=== PATIENT | male | born 1970 | race Caucasian/White ===

== ENCOUNTER 2017-05-31 15:45 | Inpatient (IN) | payer OTHER ==
[~2017-05-31] VITALS: Ht 193 cm; Wt 145.9 kg
[2017-05-31] MEDS: fentaNYL-PF 50 mCg/mL 2 mL Inj IVPUSH ONE ×4 (15:40→15:58)
[~2017-05-31 15:45] MED LIST: HYDROmorphone 1 mg/mL Inj ONE; MetoCLOpramide 5 mg/mL 2 mL Inj ONE; Ondansetron 2 mg/mL 2 mL Inj ONE; Propofol 10,000 mCg/mL 20 mL Inj ONE; fentaNYL-PF 50 mCg/mL 2 mL Inj ONE
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
[2017-05-31] MEDS ORDERED: fentaNYL-PF 50 mCg/mL 2 mL Inj ONE (15:48)
[2017-05-31] MEDS ORDERED: 0.9% Sodium Chloride 1,000 ML IV ONE (15:50)
[2017-05-31] MEDS ORDERED: Ondansetron 2 mg/mL 2 mL Inj IVPUSH PRN ×5 (15:50→21:40)
[2017-05-31] MEDS ORDERED: HYDROmorphone 1 mg/mL Inj IVPUSH PRN ×3 (15:50→21:40)
[2017-05-31 16:18] LABS: BASOPHILS % (AUTO) 0.2 % (0-3); EOSINOPHILS % (AUTO) 1.1 % (0-5); MONOCYTES % (AUTO) 6.9 % (4-12); Mean Corpuscular Hemoglobin 29.6 pg (27.0-35.0); Mean Corpuscular Volume 87.1 fL (81-100); NEUTROPHILS % (AUTO) 66.7 % (40-74); Platelet Count 278 bil/L (150-400)
--- NOTE | 2017-05-31 16:32 | DRSVH ---
PROCEDURE: X-RAY RIGHT FEMUR, TWO VIEWS ([id number]) INDICATIONS: trauma TECHNIQUE: 2 views of the femur were acquired. COMPARISON: None. FINDINGS: Bones: No fractures or dislocations. No suspicious bony lesions. Soft tissues: No suspicious soft tissue calcifications or masses. IMPRESSION: No acute fracture. No osseous lesion. If symptoms and/or clinical suspicion for patholog y persist, further assessment with repeat, or advanced imaging (e.g., CT, MRI, or bone scan) may be h elpful for further assessment. Dictated by: Malina Adrian M.D. on 05/31/2017 at 16:29 Approved by: Malina Adrian M.D. on 05/31/2017 at 16:30
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
--- NOTE | 2017-05-31 16:33 | DRSVH ---
PROCEDURE: X-RAY RIGHT FOOT, TWO VIEWS ([id number]) INDICATIONS: trauma TECHNIQUE: 2 views of the foot were acquired. COMPARISON: None. FINDINGS: Bones: No fractures or dislocations. No suspicious bony lesions. Soft tissues: No tibiotalar joint effusion. Achilles tendon appears normal. IMPRESSION: No acute radiographic findings. If acute pain persists, repeat study is recommended in 5 -7 days to exclude occult fracture at the time of the study. Dictated by: Ruth Eric M.D. on 05/31/2017 at 15:31 Approved by: Ruth Eric M.D. on 05/31/2017 at 15:31
[2017-05-31 16:36] LABS: INR 0.95 ratio
[2017-05-31] MEDS ORDERED: HYDROmorphone 1 mg/mL Inj IVPUSH ONE (17:00)
[2017-05-31] MEDS ORDERED: Alum-Mag Hydrox-Simeth 30 mL Suspension PO PRN ×2 (17:25→17:45)
[2017-05-31] MEDS ORDERED: Polyethylene Glycol (PEG) 17 Gm Powder PO PRN (17:45)
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
[2017-05-31] MEDS ORDERED: Lactated Ringer's 500 ML IV PRN (19:40)
[2017-05-31] MEDS ORDERED: fentaNYL-PF 50 mCg/mL 2 mL Inj IVPUSH PRN (19:40)
[2017-05-31] MEDS ORDERED: Lactated Ringer's 1,000 ML IV SCH (19:40)
[2017-05-31] MEDS ORDERED: MetoCLOpramide 5 mg/mL 2 mL Inj IVPUSH PRN (19:40)
[2017-05-31] MEDS ORDERED: Phenylephrine 10,000 mCg/mL Inj IVPUSH PRN (19:40)
[2017-05-31] MEDS ORDERED: Dexamethasone 4 mg/mL Inj IVPUSH PRN (19:40)
[2017-05-31] MEDS ORDERED: EPHEDrine Sulfate 50 mg/mL Inj IVPUSH PRN (19:40)
--- NOTE | 2017-05-31 19:40 | PCM.HPANE ---
Patient Data Surgeon Admitting Provider: Attending Provider:Samm Primary Care Physician:Anthony Other Provider: Reason for Visit Right Tib-Fib Fracture Ht/WT & BMI Body Mass Index Allergies Coded Allergies: No Known Allergies (Verified Allergy, Unknown, 05/31/17) Past Anesthesia History Anesthesia History: Denies:: Abnormal Airway, Anesthesia Reactions, Difficult Intubation, Fam Anesthesia Reaction, Fam Malignant Hypertherm, Malignant Hyperthermia Medications No Active Prescriptions or Reported Meds History History of ENT Problems?: No HEENT History: Denies:: Abnormal Airway Cataracts Difficult Intubation Dysphagia Glaucoma Hearing Problem Sinus Problem TMJ Denture Type: None Teeth Condition: Within Normal Limits Hx of Heart Problems?: No Cardiovascular History: Denies:: AICD Abdominal Aortic Aneurism Atrial Fibrillation Cardiac Surgery Chest Pain Congestive Heart Failure Coronary Artery Disease Edema Heart Murmur Hypertension Irregular Heartbeat Pacemaker Peripheral Vascular Rheumatic Fever Thrombophlebitis Valvular Heart Disease Hx of Respiratory Problem?: No Respiratory History: Denies:: Asthma COPD Chest Surgery Cough Dyspnea Emphysema Hemoptysis Oxygen Administration Pneumonia Pulmonary Embolism Tuberculosis Use of C-PAP Machine Use of Inhalers / NEBS Hx Neurologic Problems?: No Hx of GI Problems?: No Hx of Problems?: No Hx Musculoskeletal Problems?: No Hx of Psycho/Social Problems?: No Hx Surgeries?: Yes Hx Alcohol Use: NoHx Substance Use: No Smoking Status: Former Smoker (quit 15 years ago) Stop/Bang Risk Assessment Category Category 1A: Patient has history of documented sleep apnea, and HAS NOT received any narcotic, sedative or anesthesia administration during this stay. Category 1B: Patient has history of documented sleep apnea, and HAS received any narcotic , sedative or anesthesia administration during this stay Category 2: Patient has SUSPECTED Obstructive Sleep Apnea, and HAS received any narcotic , sedative or anesthesia administration during this stay. Category 3: Patient has SUSPECTED Obstructive Sleep Apnea and HAS NOT received narcotic, sedative or anesthesia administration during this stay. Category 4: Outpatient in Procedural Areas with known sleep apnea or who screen positive for High Risk via the STOP/BANG questionnaire. Exam Exam General Appearance: Alert, Oriented X3, Cooperative, No Acute Distress HEENT/AIRWAY: MP 2 Lungs: Clear to Auscultation Heart: Exam Unremarkable Meds/Labs/Diagnostics Admission Meds Current Medications Sodium Chloride (Normal Saline) 1,000 ml @ 0 mls/hr Q0M ONCE IV Last administered on 05/31/17t 16:24; Start 05/31/17 at 15:50; Stop 05/31/17 at 15:54 ; Status DC Fentanyl Citrate (Sublimaze Inj) 50 mcg ONCE ONCE IVPUSH Last administered on 05/31/17 15:51; Start 05/31/17 at 15:40; Stop 05/31/17 at 15:59; Status DC Fentanyl Citrate (Sublimaze Inj) 50 mcg ONCE ONCE IVPUSH Last administered on 05/31/17 15:58; Start 05/31/17 at 15:45; Stop 05/31/17 at 15:59; Status DC Hydromorphone HCl (Dilaudid Inj) 1 mg ONCE ONCE IVPUSH Last administered on 17:04; Start 05/31/17 at 17:00; Stop 05/31/17 at 18:11; Status DC Labs Test 05/31/17 16:13 05/31/17 16:14 05/31/17 16:40 White Blood Count 12.3th/mm3 (3.8-10.1) Red Blood Count 4.87mil/mm3 (4.40-5.80) Mean Corpuscular Volume 87.1fL (81-100) Mean Corpuscular Hemoglobin 29.6pg (27.0-35.0) Mean Corpuscular Hemoglobin Concent 34.0% (32.0-37.0) Red Cell Distribution Width 13.3% (12.3-15.4) Platelet Count 278bil/L (150-400) Neutrophils (%) (Auto) 66.7% (40-74) Lymphocytes (%) (Auto) 24.9% (14-46) Monocytes (%) (Auto) 6.9% (4-12) Eosinophils (%) (Auto) 1.1% (0-5) Basophils (%) (Auto) 0.2% (0-3) Prothrombin Time 10.1sec (8.1-12.5) Prothromb Time International Ratio 0.95ratio Activated Partial Thromboplast Time 24.6sec (22.8-33.0) Sodium Level 139mEq/L (134-144) Potassium Level 4.1mEq/L (3.5-5.2) Chloride Level 103mEq/L (97-108) Carbon Dioxide Level 20mmol/L (18-29) Blood Urea Nitrogen 30mg/dL (6-24) Creatinine 0.76mg/dL (0.76-1.27) Estimat Glomerular Filtration Rate 117mL/min (>59) Glucose Level 136mg/dL (60-99) Calcium Level 8.8mg/dL (8.5-10.1) Total Bilirubin 0.2mg/dL (0.0-1.2) Aspartate Amino Transf (AST/SGOT) 29U/L (0-50) Alanine Aminotransferase (ALT/SGPT) 34U/L (0-44) Alkaline Phosphatase 63U/L (25-150) Total Protein 6.8g/dL (6.4-8.4) Albumin 4.0g/dL (3.4-5.0) Alcohols < 10mg/dL (0-10) Hemoglobin 14.1g/dL (13.8-17.2) Hematocrit 41.6% (41.0-50.0) Plan Impression Patient chart reviewed, patient interviewed and anesthestic plan with risks, benefits, and alternatives discussed, and informed consent obtained. ASA Physical Status: ASA2 Mod Systemic Disease Anesthetic Plan: GA Bene/Risks/Altern/Consents: Yes HP Complete Prior to Induction: Yes Elvis Vaz MD May 31, 2017 18:45
[2017-05-31] MEDS ORDERED: Ropivacaine-PF 0.5% 30 mL Inj INFILTRATE ONE (20:02)
[2017-05-31] MEDS ORDERED: Lactated Ringer's 1,000 ML IV ONE ×2 (20:03→21:38)
[2017-05-31 21:36] VITALS: BP 150/99; PULSE 75; RESP 12; O2SAT 100
[2017-05-31] MEDS ORDERED: Acetaminophen IV 1,000 MG in IV Premix 1 EACH IV ONE (21:40)
[2017-05-31] MEDS ORDERED: diphenhydrAMINE 25 mg Capsule PO PRN (21:40)
[2017-05-31] MEDS ORDERED: Magnesium Hydroxide 10 mL Oral Concentration PO PRN (21:40)
[2017-05-31] MEDS ORDERED: hydrOXYzine Pamoate 25 mg Capsule PO PRN (21:40)
[2017-05-31 21:45] VITALS: BP 142/92; PULSE 70; RESP 14; O2SAT 100
[2017-05-31 21:50] VITALS: BP 132/84; PULSE 69; RESP 15; O2SAT 100
[2017-05-31 21:55] VITALS: BP 146/90; PULSE 78; RESP 22; O2SAT 94
[2017-05-31 22:24] VITALS: BP 128/85; PULSE 60; RESP 16; O2SAT 92
[2017-05-31] MEDS: 0.9% Sodium Chloride 1,000 ML IV SCH (23:10)
--- NOTE | 2017-05-31 23:57 | PCM.ANEP1 ---
Post Anesthesia PACU Phase 1 Assessment Vital Signs Vital Signs Date Time Temp Pulse Resp B/P Pulse Ox O2 Delivery O2 Flow Rate FiO2 05/31/17 22:24 36.6 60 16 128/85 92 Room Air 05/31/17 21:55 78 22 146/90 94 Room Air 05/31/17 21:50 69 15 132/84 100 Simple Mask 8 05/31/17 21:45 70 14 142/92 100 Simple Mask 8 05/31/17 21:36 35.8 75 12 150/99 100 Simple Mask 8 Anesthetic Administered: GA Level of Alertness: Sleepy, easy to arouse SHIPMAN's with Equal Strength: Yes Pain: Yes Pain Scale Score: 10 Nausea or Vomiting: No CV Function & Hydration Stable: Yes Airway Device: Oxygen Delivery: Simple Mask Lungs: Clear to Auscultation Dermatome Level: Full Sensation PACU Phase 2 Assessment Complications: No Patient Instructions Provided: N/A Elvis Vaz MD May 31, 2017 23:57
[2017-06-01] MEDS: Sodium Chloride LOK Flush 10 mL Syringe IV SCH ×2 (00:17→08:00)
--- NOTE | 2017-06-01 00:46 | NUR ---
Admit Patient arrived on unit at 2215, drowsy but easily roused. Oriented to room by aide, A&O able to make needs known. c/o right leg throbbing and requested pain medication. Advancing diet as tolerated but not yet able to take in po's given IV Tylenol. Tolerated well. No known PMH, states no allergies.
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
[2017-06-01] MEDS: CeFAZolin Inj 3 GM in Dextrose 5% 50 ML IV SCH ×2 (03:44→12:38)
[2017-06-01 03:45] VITALS: BP 119/71; PULSE 55; RESP 20; O2SAT 98
[2017-06-01] MEDS: 0.9% Sodium Chloride 1,000 ML IV SCH ×2 (05:37→13:37)
[2017-06-01 06:13] LABS: BASOPHILS % (AUTO) 0.2 % (0-3); EOSINOPHILS % (AUTO) 0.5 % (0-5); MONOCYTES % (AUTO) 11.2 % (4-12); Mean Corpuscular Hemoglobin 29.6 pg (27.0-35.0); Mean Corpuscular Volume 87.6 fL (81-100); NEUTROPHILS % (AUTO) 73.1 % (40-74); Platelet Count 242 bil/L (150-400)
--- NOTE | 2017-06-01 07:24 | CONS ---
[address] [address] CONSULTATION REPORT PATIENT: ADELINA ORLANDO : 1970 MR#: [id number] ADMIT: 05/31/2017 JOB ID: [id number] DATE OF SERVICE: 05/31/2017 CHIEF COMPLAINT: Right lower leg injury. HISTORY OF PRESENT ILLNESS: The patient is a 46-year-old male who works in water [employer] and had a van which got stuck on a hill while mitzi a trailer and when he stepped from the van, the van slid backward down the hill, either running him over knocking him and injuring his right lower leg. He was unable to ambulate after the fall. He denies loss of consciousness or other injuries. He had severe acute pain in the right leg. This feels a bit better after being splinted, but describes a dull throbbing. PAST MEDICAL HISTORY: Significant for none stated. PAST SURGICAL HISTORY: Tympanostomy as a child and no problems with this. ALLERGIES: No known drug allergies. MEDICATIONS: None. SOCIAL HISTORY: The patient denies tobacco or alcohol use. Denies illicit drug use. SOCIAL HISTORY: The patient is seen with his present. PHYSICAL EXAMINATION: His blood pressure 132/111, pulse rate 64, respirations 22, O2 sat 100%. General: Alert and oriented x3. No acute distress. Denies tenderness to palpation over the bilateral clavicles. Does have some soreness in his left upper arm, but has good range of motion and strength. His right tibia has pain and tenderness over the mid shaft. He is able to move his toes and he does have some numbness in his toes, but his feet are warm, pink and well perfused with capillary refill less than 3 seconds. Dorsalis pedis pulse +2. He is splinted in a long leg posterior splint. X-rays demonstrate a right mid shaft tib-fib fracture with displacement. ASSESSMENT: Right mid shaft tib-fib fracture. PLAN: We discussed treatment options for this and I recommended intramedullary nailing. We discussed the risks, benefits, and possible complications of surgery. All questions were answered and he wished to proceed. We also discussed the phenomenon of compartment syndrome and the fact that if this arises we would need to do a decompressive fasciotomy, but I do not feel that he has any symptoms of compartment syndrome at this time. Will plan for surgery later this evening once he has been n.p.o. for eight hours.
[2017-06-01] MEDS: HYDROcodone-APAP 7.5-325 mg Tablet PO PRN ×2 (07:57→12:01)
[2017-06-01] MEDS ORDERED: Senna-Docusate 8.6-50 mg Tablet PO SCH (08:30)
--- NOTE | 2017-06-01 09:07 | PCM.PNMED ---
Subjective Date of Service Jun 01, 2017 Subjective Patient seen and examined. Pain well controlled. Tolerating orals. Vitals stable. Exam Vital Signs Vital Sign - Last Date Time Temp Pulse Resp B/P Pulse Ox O2 Delivery O2 Flow Rate FiO2 06/01/17 03:45 36.4 55 20 119/71 98 Room Air 05/31/17 21:50 8 Intake and Output 05/31/17 05/31/17 06/01/17 Cumulative From/Thru 15:00 23:00 07:00 05/31/17 20:00 - 06/01/17 05:47 Intake Total 1575 ml 1076 ml 2651 ml Output Total 825 ml 1500 ml 2325 ml Balance 750 ml -424 ml 326 ml Intake Oral 400 ml 400 ml IV Total 1575 ml 676 ml 2251 ml Output Urine Total 625 ml 1500 ml 2125 ml Estimated Blood Loss 200 ml 200 ml Exam Constitutional: Middle-aged male in no acute distress Head: Normocephalic atraumatic Eyes: PERRLA DC EOMI Chest: Clear to auscultation Cor: Technically bradycardic at rate of 53 but will go up to 75 on telemetry and sinus rhythm, S1, S2 without murmur Abdomen: Soft nontender bowel sounds present Extremities: Left reveals leg without any abnormalities superficial abrasion of his left forearm area. Right leg is currently splinted Lab and Diagnostics Result Diagram: 06/01/17 0549 06/01/17 0549 12-lead ECG EKG is sinus at a rate of 53 with NM interval of 205 and QTC of 419 Assessment & Plan #Right tib-fib fracture, acute, present on admission -Had open reduction yesterday in OR - tolerated procedure well, pain control - PT # Sinus bradycardia, present on admission -Do not see anything pathological regarding this and see no contraindication to surgery -We will monitor on telemetry #DVT prophylaxis -Defer to orthopedic surgery #CODE STATUS -Full code VTE Prophylaxis: Other (patient going to OR later tonight so will hold any subcutaneous anticoagulation) Resuscitation Status: CPR: Attempt Resuscitation Time spent 35 mins Thanh Vaz MD Jun 01, 2017 09:07
[2017-06-01 09:21] VITALS: BP 138/84; PULSE 56; RESP 18; O2SAT 97
--- NOTE | 2017-06-01 09:23 | PCM.PNORTH ---
Subjective Date of Service: Jun 01, 2017 Visit Information: Reason for Visit Right Tib-Fib Fracture Surgery/Surgery Date Post-Op Day # Date of Admission: May 31, 2017 at 22:25 Hospital Day # Subjective Status post day #1 right tibial nail from right tibia fibula fracture. Patient states he is definitely a little achy in the knee and ankle but feels like he is doing pretty well. He would like to go home today and understands he may be a little sore for the next day or 2. He has used crutches in the past and is comfortable using them. Postop General: No Complaints, No Shortness of Breath, No Chest Pain Objective Exam Objective Patient is alert and oriented 3. Answering questions appropriately. Patient is sitting up in the bed and not in acute distress today. Dressing is clean dry and intact. Calf is soft and nontender. Sensation and pulses intact, patient able to wiggle toes. Toes are a little cold, this is the case bilaterally and patient states this is normal for him. Vital Signs and I/O Vital Sign - Last Date Time Temp Pulse Resp B/P Pulse Ox O2 Delivery O2 Flow Rate FiO2 06/01/17 03:45 36.4 55 20 119/71 98 Room Air 05/31/17 21:50 8 Intake and Output 05/31/17 05/31/17 06/01/17 Cumulative From/Thru 15:00 23:00 07:00 05/31/17 20:00 - 06/01/17 05:47 Intake Total 1575 ml 1076 ml 2651 ml Output Total 825 ml 1500 ml 2325 ml Balance 750 ml -424 ml 326 ml Intake Oral 400 ml 400 ml IV Total 1575 ml 676 ml 2251 ml Output Urine Total 625 ml 1500 ml 2125 ml Estimated Blood Loss 200 ml 200 ml Lab & Micro Results Laboratory Tests Test 05/31/17 16:13 05/31/17 16:14 05/31/17 16:40 06/01/17 05:49 White Blood Count 12.3th/mm3 (3.8-10.1) 13.0th/mm3 (3.8-10.1) Red Blood Count 4.87mil/mm3 (4.40-5.80) 4.43mil/mm3 (4.40-5.80) Hemoglobin 14.4g/dL (13.8-17.2) 14.1g/dL (13.8-17.2) 13.1g/dL (13.8-17.2) Hematocrit 42.4% (41.0-50.0) 41.6% (41.0-50.0) 38.8% (41.0-50.0) Mean Corpuscular Volume 87.1fL (81-100) 87.6fL (81-100) Mean Corpuscular Hemoglobin 29.6pg (27.0-35.0) 29.6pg (27.0-35.0) Mean Corpuscular Hemoglobin Concent 34.0% (32.0-37.0) 33.8% (32.0-37.0) Red Cell Distribution Width 13.3% (12.3-15.4) 13.4% (12.3-15.4) Platelet Count 278bil/L (150-400) 242bil/L (150-400) Neutrophils (%) (Auto) 66.7% (40-74) 73.1% (40-74) Lymphocytes (%) (Auto) 24.9% (14-46) 14.8% (14-46) Monocytes (%) (Auto) 6.9% (4-12) 11.2% (4-12) Eosinophils (%) (Auto) 1.1% (0-5) 0.5% (0-5) Basophils (%) (Auto) 0.2% (0-3) 0.2% (0-3) Prothrombin Time 10.1sec (8.1-12.5) Prothromb Time International Ratio 0.95ratio Activated Partial Thromboplast Time 24.6sec (22.8-33.0) Sodium Level 139mEq/L (134-144) 139mEq/L (134-144) Potassium Level 4.1mEq/L (3.5-5.2) 3.9mEq/L (3.5-5.2) Chloride Level 103mEq/L (97-108) 104mEq/L (97-108) Carbon Dioxide Level 20mmol/L (18-29) 22mmol/L (18-29) Blood Urea Nitrogen 30mg/dL (6-24) 20mg/dL (6-24) Creatinine 0.76mg/dL (0.76-1.27) 0.61mg/dL (0.76-1.27) Estimat Glomerular Filtration Rate 117mL/min (>59) 151mL/min (>59) Glucose Level 136mg/dL (60-99) 119mg/dL (60-99) Calcium Level 8.8mg/dL (8.5-10.1) 8.4mg/dL (8.5-10.1) Total Bilirubin 0.2mg/dL (0.0-1.2) 0.3mg/dL (0.0-1.2) Aspartate Amino Transf (AST/SGOT) 29U/L (0-50) 31U/L (0-50) Alanine Aminotransferase (ALT/SGPT) 34U/L (0-44) 31U/L (0-44) Alkaline Phosphatase 63U/L (25-150) 55U/L (25-150) Total Protein 6.8g/dL (6.4-8.4) 5.8g/dL (6.4-8.4) Albumin 4.0g/dL (3.4-5.0) 3.7g/dL (3.4-5.0) Alcohols < 10mg/dL (0-10) Hold Dailey Top Tube Received (Received) Result Diagram: 06/01/17 0549 06/01/17 0549 Assessment & Plan Impression Status post day #1 right tibial nail. Patient states he is feeling pretty good. Would definitely like to go home today. Problems: Plan Patient will work this morning with physical therapy to be cleared for discharge to home. Patient will be utilizing crutches and he will be given a prescription for crutches to use at home. Patient will utilize aspirin 325 mg enteric-coated and take 1 twice a day for 6 weeks for DVT prophylaxis. No weightbearing on the right leg, patient will use crutches and he may only place his toe down for balance but no weight on this foot. We will send you home with [place] 5/325 mg tablets to take 1-2 tablets every 4 hours if needed for pain. You may take Tylenol instead but I would only like you to take one or the other not both together. We will have the patient follow-up in 2 weeks to have a wound check, any sutures removed, and to be placed into a cast or walking boot as well as x-rays at that time. VTE Prophylaxis: Other (patient going to OR later tonight so will hold any subcutaneous anticoagulation) Resuscitation Status: CPR: Attempt Resuscitation Lester Sethi PA-C Jun 01, 2017 09:23
--- NOTE | 2017-06-01 09:26 | PCM.DIORTH ---
Ortho Discharge Instruction Date of Service: Jun 01, 2017 Dates of Hospitalization Date of Hospital Admission May 31, 2017 at 22:25 Providers Admitting Physician: Ernestine Woodward MD Primary Care Physician: Anthony Attending Physician: Thanh Vaz MD Diet Discharge Diet: No restrictions Activity Discharge Activity-General: Try not to overdue Right Lower Extremity: Toe-Touch Weight Bearing Discharge Assist Device: Crutches Additional Instructions Discharge Instructions Patient will work this morning with physical therapy to be cleared for discharge to home. Patient will be utilizing crutches and he will be given a prescription for crutches to use at home. Patient will utilize aspirin 325 mg enteric-coated and take 1 twice a day for 6 weeks for DVT prophylaxis. No weightbearing on the right leg, patient will use crutches and he may only place his toe down for balance but no weight on this foot. We will send you home with [place] 5/325 mg tablets to take 1-2 tablets every 4 hours if needed for pain. You may take Tylenol instead but I would only like you to take one or the other not both together. We will have the patient follow-up in 2 weeks to have a wound check, any sutures removed, and to be placed into a cast or walking boot as well as x-rays at that time. Lester Sethi PA-C Jun 01, 2017 09:26
--- NOTE | 2017-06-01 09:29 | PCM.DC.ORT ---
Discharge Summary Date of Service: Jun 01, 2017 Date of Hospital Admission: May 31, 2017 at 22:25 Date of Surgery: May 31, 2017 Date of Discharge: Jun 01, 2017 Reason for Hospitalization: Right tibia and fibula fractures Procedures Performed: Right tibial nailing. Hospital Course: Patient presented to [facility] surgical suite for the procedure of right tibial nailing by Dr. Albert Kessler on 05/31/2017. Patient was prepped for surgery and the procedure was performed successfully, patient was discharged to PACU under stable condition, tolerated the procedure well. Once stabilized in PACU and pain well controlled, patient was admitted to the hospital floor for observation, pain control, and progression with physical therapy. The first day the patient was able to resume a regular diet, void on their own, not having any problems with nausea or vomiting. The patient did not have any adverse falls, reactions, or events were all in the hospital. The patient began working with physical therapy on day one then progressed quite well with reasonable pain control. On day one the patient was able to ambulate safely on their own, and pain was controlled sufficiently to be discharged to home with crutches. We will utilize aspirin 325 mg by mouth twice a day for 6 weeks for DVT prophylaxis. The patient was discharged to home under stable condition with plan to follow- up with patient at 2 weeks for a postoperative appointment. Diagnosis at Time of Discharge Status post right tibial nailing Problems: Orthopedic Follow up Plan: In Two Weeks in my clinic Discharge Instructions: Patient will work this morning with physical therapy to be cleared for discharge to home. Patient will be utilizing crutches and he will be given a prescription for crutches to use at home. Patient will utilize aspirin 325 mg enteric-coated and take 1 twice a day for 6 weeks for DVT prophylaxis. No weightbearing on the right leg, patient will use crutches and he may only place his toe down for balance but no weight on this foot. We will send you home with [place] 5/325 mg tablets to take 1-2 tablets every 4 hours if needed for pain. You may take Tylenol instead but I would only like you to take one or the other not both together. We will have the patient follow-up in 2 weeks to have a wound check, any sutures removed, and to be placed into a cast or walking boot as well as x-rays at that time. No Active Prescriptions or Reported Meds Lester Sethi PA-C Jun 01, 2017 09:29
--- NOTE | 2017-06-01 11:31 | NUR ---
Social Work: Initial Assessment/Discharge/Multidisciplinary Rounds D: EMR reviewed. Please see Initial Assessment linked to this note for more information. Pt is a 46 year old male admitted [place] for right tib-fib fracture per H&P. Pt's insurance is [employer]. Pt has no other insurance coverage. Pt has no PCP. Pt discussed in multidisciplinary rounds, pt to discharge today. PT evaluated and cleared pt for home with crutches. SW met with pt and at bedside to conduct initial assessment. Pt was alert and oriented x3. SW explained role and wrote phone number on white board. SW provided [facility] Discharge Planning Checklist and encouraged pt to contact SW for any discharge planning questions. Pt lives at home with his spouse in [place]. Pt is independent with all ADLs at baseline. Pt uses no DME at baseline and will need crutches for use at discharge. Discussed obtaining crutches, pt's is going to go purchase some today prior to d/c. Pt drives. Pt has no HH or SNF history. Pt has no LTC or VA benefits. Pt has no DPOA on file, declined DPOA information. SW also discussed the [place] [employer] to find an insurance plan that meets pt's needs, provided information and director patient financial services application for the hospital to pt at bedside. No additional d/c needs. Pt to d/c home with spouse to transport via POV. A: Pt who is independent at baseline and has the capacity for self-care. P: Pt anticipated to discharge home with spouse to transport via POV. No additional d/c needs. ROSA Marques Addendum: 06/01/17 at 1135 by MADELINE WEBB Amended: Links added.
--- NOTE | 2017-06-01 14:49 | NUR ---
Toe Tingling, Discharge Upon morning assessment patient reports some tingling to the right toes and pain to the right knee. Patient states that the tingling sensation comes and goes. PA aware, no new orders received. Patient states that this tingling sensation decreased as shift progressed. Orders for discharge were received. The patient was made aware of the plan to discharge and was agreeable to go. The patient was given information and teaching on his diagnosis and treatment, signs and symptoms to be aware of, follow up instructions, wound and dressing care, crutch use teaching as well as scripts for new medications with teaching and physical handouts on these medications. The patient signified understanding of this information, verified using the teach back method. The patient's asymptomatic IV was then removed intact and the patient was dressed in his own clothing. Patient belongings gathered and delivered to family vehicle by spouse. Patient denies any belongings in the hospital safe of pharmacy. The patient was then wheeled to the main entrance via wheelchair where he entered a private family vehicle. At the time of discharge the patient was alert and oriented, with no complaint of chest pain, shortness of breath, toe or leg tingling or numbness and with pain to the right leg within a tolerable level.
== END 2017-06-01 14:45 | disposition home or self-care (01) | DRG 494 ==
LOC: SED 15:45 → SAS 17:44 → OSC 22:25
PROVIDERS: ADMIT Specialist; ATTEND Internal Medicine
PROC: 0QSG06Z Reposition Right Tibia with Intramedullary Internal Fixation Device, Open Approach (ICD-10-PCS; principal; 2017-05-31 19:00)
DX: S82.201A Unspecified fracture of shaft of right tibia, initial encounter for closed fracture (principal); R00.1 Bradycardia, unspecified; V58.4XXA Person boarding or alighting a pick-up truck or van injured in noncollision transport accident, initial encounter; Y99.0 Civilian activity done for income or pay; S82.401A Unspecified fracture of shaft of right fibula, initial encounter for closed fracture